=== PATIENT | female | born 1925 | race Caucasian/White ===

== ENCOUNTER 2016-07-08 15:00 | Emergency (ER) | payer MEDICARE, OTHER ==
[~2016-07-08 15:00] MED LIST: ASPIRIN CHEWABL81 MG PO; NEURONTIN 100100 MG PO; SYNTHROID50 MCG PO
[2016-07-08 17:56] LABS: HEMOGLOBIN 12.7 gm/dl (12.3-15.3); RED BLOOD COUNT 4.24 M/UL (4.00-5.10); WHITE BLOOD COUNT 8.6 K/UL (4.5-11.0)
== END 2016-07-08 21:40 | disposition home or self-care (01) ==
LOC: ER1 15:00
PROVIDERS: Emergency Medicine
DX: J44.9 Chronic obstructive pulmonary disease, unspecified (principal); N39.0 Urinary tract infection, site not specified; E11.649 Type 2 diabetes mellitus with hypoglycemia without coma; G30.9 Alzheimer's disease, unspecified; F02.80 Dementia in other diseases classified elsewhere, unspecified severity, without behavioral disturbance, psychotic disturbance, mood disturbance, and anxiety; R11.10 Vomiting, unspecified; E03.9 Hypothyroidism, unspecified; I48.91 Unspecified atrial fibrillation; I13.0 Hypertensive heart and chronic kidney disease with heart failure and stage 1 through stage 4 chronic kidney disease, or unspecified chronic kidney disease; I50.9 Heart failure, unspecified; N18.9 Chronic kidney disease, unspecified; E11.22 Type 2 diabetes mellitus with diabetic chronic kidney disease; Z66 Do not resuscitate; Z95.0 Presence of cardiac pacemaker
CPT/HCPCS: 36415; 36600; 51702; 70450; 71010; 80053; 81001; 82803; 83880; 84484; 85025; 87077; 87086; 87186; 94664; 96374; 96375; 99283; J2405

== ENCOUNTER 2016-10-13 22:21 | Inpatient (IN) | payer MEDICARE, OTHER ==
[~2016-10-13] VITALS: Ht 154.9 cm; Wt 85.8 kg
[2016-10-13 23:01] LABS: HEMOGLOBIN 10.7 gm/dl (12.3-15.3); RED BLOOD COUNT 3.57 M/UL (4.00-5.10); WHITE BLOOD COUNT 9.4 K/UL (4.5-11.0)
[2016-10-14] MEDS ORDERED: DONEPEZIL HCL5 MG PO (02:36)
[2016-10-14] MEDS ORDERED: FUROSEMIDE20 MG PO (02:36)
[2016-10-14] MEDS ORDERED: ISOSORBIDE MONO20 MG PO (02:37)
[2016-10-14] MEDS ORDERED: LEVOTHYROXINE50 MCG PO (02:38)
[2016-10-14] MEDS ORDERED: RANEXA500 MG PO (02:39)
[2016-10-14] MEDS ORDERED: POLYETHYLENE GL17 GM PO (02:39)
[2016-10-14] MEDS ORDERED: PRAVACHOL20 MG PO (02:39)
[2016-10-14] MEDS ORDERED: VENLAFAXINE HCL75 M2 PO (02:40)
[2016-10-14] MEDS ORDERED: ELIQUIS5 MG PO (02:40)
[2016-10-14] MEDS ORDERED: HYDRALAZINE HCL10 MG PO (02:41)
[2016-10-14] MEDS ORDERED: LORAZEPAM0.5 MG PO (02:42)
[2016-10-14] MEDS ORDERED: NAMENDA10 MG PO (02:42)
[2016-10-14] MEDS ORDERED: NYSTATIN60 GM TOP (02:44)
[2016-10-14] MEDS ORDERED: SYMBICORT 160-1 INHA INH (02:45)
[2016-10-14] MEDS ORDERED: HYPER-SAL4 M1 INH (02:45)
[2016-10-14] MEDS ORDERED: LOPRESSOR 50 MG50 MG PO (02:46)
[2016-10-14] MEDS ORDERED: NOVOLOG100 UNIT/1 SQ ×4 (02:47→02:51)
[2016-10-14] MEDS ORDERED: LANTUS100 UNIT/1 SQ (02:49)
[2016-10-14] MEDS ORDERED: TYLENOL 500 MG500 MG PO (02:52)
[2016-10-14] MEDS ORDERED: LORTAB 5-325 M1 EACH PO (02:53)
[2016-10-14] MEDS ORDERED: BISCOLAX10 MG PR (02:53)
[2016-10-14] MEDS ORDERED: LACTULOSE20 GM/30 M PO (02:54)
[2016-10-14] MEDS ORDERED: ZOFRAN ODT 4 MG4 MG PO (02:55)
[2016-10-14] MEDS ORDERED: GUAIFENESIN-CODE5 ML PO (02:56)
[2016-10-14] MEDS ORDERED: IPRAT-ALBUT 0.5-3 ML INH (02:56)
[2016-10-15 04:25] LABS: HEMOGLOBIN 10.4 gm/dl (12.3-15.3); RED BLOOD COUNT 3.53 M/UL (4.00-5.10); WHITE BLOOD COUNT 8.9 K/UL (4.5-11.0)
[2016-10-16 04:14] LABS: HEMOGLOBIN 11.1 gm/dl (12.3-15.3); RED BLOOD COUNT 3.68 M/UL (4.00-5.10); WHITE BLOOD COUNT 10.9 K/UL (4.5-11.0)
[2016-10-17 04:31] LABS: HEMOGLOBIN 10.3 gm/dl (12.3-15.3); RED BLOOD COUNT 3.49 M/UL (4.00-5.10); WHITE BLOOD COUNT 8.4 K/UL (4.5-11.0)
[2016-10-18 03:51] LABS: HEMOGLOBIN 11.5 gm/dl (12.3-15.3); RED BLOOD COUNT 3.82 M/UL (4.00-5.10); WHITE BLOOD COUNT 9.9 K/UL (4.5-11.0)
[2016-10-20] MEDS ORDERED: GLUCERNA/RESOURC1 EA PO (11:34)
[2016-10-20] MEDS ORDERED: FERROUS SULFAT325 M2 PO (11:36)
[2016-10-20] MEDS ORDERED: MEGACE400 MG/10 PO (11:40)
[2016-10-20] MEDS ORDERED: TEARS NATURALE30 ML OP (11:44)
== END 2016-10-20 09:45 | DRG 280 ==
LOC: ER1 22:21 → PROG CARE 10-14 01:20 → ZEROF 10-14 01:20 → PROG CARE 10-14 02:35
PROVIDERS: Family Medicine; Internal Medicine; ADMIT Internal Medicine
DX: I13.0 Hypertensive heart and chronic kidney disease with heart failure and stage 1 through stage 4 chronic kidney disease, or unspecified chronic kidney disease (principal); I21.4 Non-ST elevation (NSTEMI) myocardial infarction; I50.43 Acute on chronic combined systolic (congestive) and diastolic (congestive) heart failure; J96.11 Chronic respiratory failure with hypoxia; E11.22 Type 2 diabetes mellitus with diabetic chronic kidney disease; E11.65 Type 2 diabetes mellitus with hyperglycemia; N18.3 Chronic kidney disease, stage 3 (moderate); I48.0 Paroxysmal atrial fibrillation; I25.118 Atherosclerotic heart disease of native coronary artery with other forms of angina pectoris; I27.2 Other secondary pulmonary hypertension; J44.9 Chronic obstructive pulmonary disease, unspecified; D50.9 Iron deficiency anemia, unspecified; E03.9 Hypothyroidism, unspecified; E78.5 Hyperlipidemia, unspecified; I08.1 Rheumatic disorders of both mitral and tricuspid valves; E87.6 Hypokalemia; E83.42 Hypomagnesemia; F03.90 Unspecified dementia, unspecified severity, without behavioral disturbance, psychotic disturbance, mood disturbance, and anxiety; E66.9 Obesity, unspecified; Z95.0 Presence of cardiac pacemaker; Z95.1 Presence of aortocoronary bypass graft; Z98.61 Coronary angioplasty status; Z87.891 Personal history of nicotine dependence; Z86.718 Personal history of other venous thrombosis and embolism; Z74.01 Bed confinement status; Z66 Do not resuscitate; Z68.35 Body mass index [BMI] 35.0-35.9, adult; Z99.81 Dependence on supplemental oxygen; Z79.01 Long term (current) use of anticoagulants; Z79.4 Long term (current) use of insulin; Z79.51 Long term (current) use of inhaled steroids; Z79.891 Long term (current) use of opiate analgesic; Z79.899 Other long term (current) drug therapy; Z90.710 Acquired absence of both cervix and uterus; Z98.890 Other specified postprocedural states; Z82.49 Family history of ischemic heart disease and other diseases of the circulatory system; Z83.3 Family history of diabetes mellitus
CPT/HCPCS: ECHO; 36415; 36600; 71010; 80048; 80053; 81001; 82550; 82553; 82607; 82803; 82962; 83540; 83550; 83735; 83874; 83880; 84100; 84132; 84484; 85025; 85027; 87077; 87086; 87186; 93005; 93306; 94640; 94664; 96374; 97110; 97530; 99285; J0696; J1815; J1817; J1940; J7050